=== PATIENT | female | born 1995 | race Two or more races ===

== ENCOUNTER → 2017-02-20 10:33 | Outpatient (CLI) | payer MEDICAID ==
[2011-08-10 00:13] VITALS: BMI 26.2
== END | disposition home or self-care (01) ==
LOC: D.US 10:33
DX: R10.2 Pelvic and perineal pain (principal)

== ENCOUNTER 2017-04-07 11:32 | Emergency (ER) | payer MEDICAID ==
[2011-08-10 00:13] VITALS: BMI 26.2
== END 2017-04-07 13:02 | disposition home or self-care (01) ==
LOC: D.ER 11:32
DX: R51 Headache (principal); K21.9 Gastro-esophageal reflux disease without esophagitis

== ENCOUNTER 2017-05-19 09:38 | Emergency (ER) | payer MEDICAID ==
[2011-08-10 00:13] VITALS: BMI 26.2
== END 2017-05-19 10:38 | disposition home or self-care (01) ==
LOC: D.ER 09:38
DX: J02.9 Acute pharyngitis, unspecified (principal); J06.9 Acute upper respiratory infection, unspecified; K21.9 Gastro-esophageal reflux disease without esophagitis

== ENCOUNTER → 2018-08-29 09:38 | Outpatient (CLI) | payer MEDICAID ==
[2011-08-10 00:13] VITALS: BMI 26.2
== END | disposition home or self-care (01) ==
LOC: D.US 09:38
DX: N93.9 Abnormal uterine and vaginal bleeding, unspecified (principal)

== ENCOUNTER 2018-09-08 01:52 | Emergency (ER) | payer MEDICAID ==
[~2018-09-08] VITALS: Ht 160 cm; Wt 69.5 kg
[2018-09-08 01:56] VITALS: Ht 160 cm; Wt 69.5 kg
[2018-09-08 02:22] LABS: BASOPHILS 0.2 % (0-2); EOSINOPHILS 2.4 % (0-7); HEMATOCRIT 37.3 % (36.0-48.0); HEMOGLOBIN 12.2 g/dL (12-16); IMMATURE GRANULOCYTES 0.1 % (0-5); LYMPHOCYTES 34.3 % (15-50); MCH 26.9 pg (26.0-34.0); MCHC 32.7 g/dL (31.0-37.0); MCV 82.3 fL (80.0-100.0); MEAN PLATELET VOLUME 9.7 fL (7.4-10.4); MONOCYTES 6.6 % (2-11); NEUTROPHILS 56.4 % (40-80); RBC 4.53 10x6/uL (4.00-5.40); RDW 14.4 % (11.5-14.5); WBC 9.6 10x3/uL (4.8-10.8)
[2018-09-08 02:23] LABS: APPEARANCE HAZY (CLEAR); BILIRUBIN NEGATIVE (NEGATIVE); COLOR YELLOW (YELLOW); GLUCOSE NEGATIVE (NEGATIVE); KETONE NEGATIVE (NEGATIVE); NITRITE NEGATIVE (NEGATIVE); PROTEIN NEGATIVE (NEGATIVE); UROBILINOGEN NORMAL (NORMAL)
[2018-09-08 02:24] LABS: HCG URINE NEGATIVE (NEGATIVE)
[2018-09-08 02:25] LABS: PLATELET COUNT 290 10x3/uL (130-400)
[2018-09-08 02:29] LABS: BACTERIA MODERATE /hpf (NONE SEEN); EPITHELIAL CELLS 0-5 /hpf (0-5); RED CELLS - URINE OCC /hpf (0-5); WHITE CELLS - URINE 0-5 /hpf (0-5)
[2018-09-08 02:36] LABS: ALBUMIN 3.6 g/dL (3.4-5.0); ALKALINE PHOSPHATASE 78 U/L (46-116); ALT (SGPT) 23 U/L (10-68); BILIRUBIN - TOTAL 0.25 mg/dL (0.2-1.3); CALC OSMOLALITY 278 mosm/kg (275-300); CALCIUM 8.3 mg/dL (8.5-10.1); CHLORIDE - SERUM 105 mmol/L (98-107); CREATININE - SERUM 0.6 mg/dL (0.6-1.3); GLUCOSE 111 mg/dL (74-106); LIPASE 223 U/L (73-393); POTASSIUM - SERUM 3.8 mmol/L (3.5-5.1); PROTEIN - SERUM 7.4 g/dL (6.4-8.2); SODIUM 140 mmol/L (136-145); UREA NITROGEN 11 mg/dL (7-18); eGFR NON AFRICAN AMERICAN > 90 mL/min (90-120)
[2018-09-08 03:12] VITALS: BP 130/78
== END 2018-09-08 03:13 | disposition home or self-care (01) ==
LOC: D.ER 01:52
PROVIDERS: Family Medicine
DX: R19.7 Diarrhea, unspecified (principal); R10.2 Pelvic and perineal pain

== ENCOUNTER 2018-11-04 17:52 | Emergency (ER) | payer MEDICAID ==
[2018-09-08 01:56] VITALS: Ht 160 cm
[2018-11-04 18:56] LABS: BASOPHILS 0.2 % (0-2); EOSINOPHILS 1.7 % (0-7); HEMATOCRIT 37.3 % (36.0-48.0); HEMOGLOBIN 12.4 g/dL (12-16); IMMATURE GRANULOCYTES 0.2 % (0-5); LYMPHOCYTES 31.1 % (15-50); MCH 27.4 pg (26.0-34.0); MCHC 33.2 g/dL (31.0-37.0); MCV 82.3 fL (80.0-100.0); NEUTROPHILS 60.8 % (40-80); PLATELET COUNT 287 10x3/uL (130-400); RBC 4.53 10x6/uL (4.00-5.40); RDW 14.1 % (11.5-14.5); WBC 11.4 10x3/uL (4.8-10.8)
[2018-11-04 19:20] LABS: ALBUMIN 3.4 g/dL (3.4-5.0); ALKALINE PHOSPHATASE 65 U/L (46-116); ALT (SGPT) 19 U/L (10-68); BILIRUBIN - TOTAL 0.19 mg/dL (0.2-1.3); CALC OSMOLALITY 267 mosm/kg (275-300); CALCIUM 8.3 mg/dL (8.5-10.1); CARBON DIOXIDE 23.1 mmol/L (21.0-32.0); CHLORIDE - SERUM 103 mmol/L (98-107); CREATININE - SERUM 0.6 mg/dL (0.6-1.3); GLUCOSE 84 mg/dL (74-106); POTASSIUM - SERUM 3.5 mmol/L (3.5-5.1); PROTEIN - SERUM 7.3 g/dL (6.4-8.2); SODIUM 135 mmol/L (136-145); UREA NITROGEN 10 mg/dL (7-18); eGFR NON AFRICAN AMERICAN > 90 mL/min (90-120)
[2018-11-04 19:43] LABS: HCG - QUANTITATIVE (MATERNAL) 52334 mIU/mL
[2018-11-04 22:23] LABS: APPEARANCE CLEAR (CLEAR); COLOR YELLOW (YELLOW)
[2018-11-04 22:24] LABS: SPECIFIC GRAVITY 1.015 (1.005-1.020)
[2018-11-04 22:28] LABS: BILIRUBIN NEGATIVE (NEGATIVE); GLUCOSE NEGATIVE (NEGATIVE); KETONE NEGATIVE (NEGATIVE); NITRITE NEGATIVE (NEGATIVE); PROTEIN NEGATIVE (NEGATIVE); UROBILINOGEN NORMAL (NORMAL)
[2018-11-04 22:36] LABS: RED CELLS - URINE OCC /hpf (0-5)
[2018-11-04 22:39] LABS: EPITHELIAL CELLS 0-5 /hpf (0-5)
[2018-11-04 22:40] LABS: BACTERIA MANY /hpf (NONE SEEN)
[2018-11-04] MEDS ORDERED: ZOFRAN ODT4 MG/UDTAB PO (22:51)
[2018-11-04 23:47] VITALS: BP 128/70
== END 2018-11-04 23:47 | disposition home or self-care (01) ==
LOC: D.ER 17:52
PROVIDERS: Family Medicine
DX: O34.80 Maternal care for other abnormalities of pelvic organs, unspecified trimester (principal); N83.209 Unspecified ovarian cyst, unspecified side; Z3A.08 8 weeks gestation of pregnancy

== ENCOUNTER → 2018-11-27 13:10 | Outpatient (CLI) | payer MEDICAID ==
[~2018-11-27 13:10] MED LIST: ZOFRAN ODT4 MG/UDTAB PO
== END | disposition home or self-care (01) ==
LOC: D.RAD 13:00
PROVIDERS: ATTEND Obstetrics & Gynecology
DX: R76.11 Nonspecific reaction to tuberculin skin test without active tuberculosis (principal)

== ENCOUNTER 2019-01-14 11:13 | Emergency (ER) | payer MEDICAID ==
[~2019-01-14] VITALS: Ht 160 cm; Wt 68.2 kg
[2019-01-14 11:16] VITALS: Ht 160 cm; Wt 68.2 kg
[2019-01-14] MEDS ORDERED: PRENAVITE1 TAB PO (11:20)
[2019-01-14 11:50] LABS: BASOPHILS 0.1 % (0-2); EOSINOPHILS 0.7 % (0-7); HEMATOCRIT 35.4 % (36.0-48.0); HEMOGLOBIN 12.4 g/dL (12-16); IMMATURE GRANULOCYTES 0.1 % (0-5); MCH 28.8 pg (26.0-34.0); MCV 82.3 fL (80.0-100.0); MONOCYTES 4.4 % (2-11); NEUTROPHILS 70.7 % (40-80); PLATELET COUNT 250 10x3/uL (130-400); WBC 9.3 10x3/uL (4.8-10.8)
[2019-01-14 12:08] LABS: ALBUMIN 3.3 g/dL (3.4-5.0); ALKALINE PHOSPHATASE 54 U/L (46-116); ALT (SGPT) 17 U/L (10-68); BILIRUBIN - TOTAL 0.34 mg/dL (0.2-1.3); CALC OSMOLALITY 268 mosm/kg (275-300); CALCIUM 8.8 mg/dL (8.5-10.1); CARBON DIOXIDE 24.9 mmol/L (21.0-32.0); CHLORIDE - SERUM 103 mmol/L (98-107); CREATININE - SERUM 0.5 mg/dL (0.6-1.3); GLUCOSE 83 mg/dL (74-106); POTASSIUM - SERUM 3.6 mmol/L (3.5-5.1); PROTEIN - SERUM 7.2 g/dL (6.4-8.2); SODIUM 136 mmol/L (136-145); UREA NITROGEN 8 mg/dL (7-18); eGFR NON AFRICAN AMERICAN > 90 mL/min (90-120)
[2019-01-14 12:19] LABS: APPEARANCE CLEAR (CLEAR); BILIRUBIN NEGATIVE (NEGATIVE); COLOR YELLOW (YELLOW); GLUCOSE NEGATIVE (NEGATIVE); KETONE SMALL mg/dL (NEGATIVE); NITRITE NEGATIVE (NEGATIVE); PROTEIN NEGATIVE (NEGATIVE); SPECIFIC GRAVITY 1.015 (1.005-1.020); UROBILINOGEN NORMAL (NORMAL)
[2019-01-14 12:21] LABS: BACTERIA MANY /hpf (NONE SEEN); EPITHELIAL CELLS 0-5 /hpf (0-5); MUCUS <1+ /lpf (NONE SEEN); RED CELLS - URINE RARE /hpf (0-5); WHITE CELLS - URINE 0-5 /hpf (0-5)
[2019-01-14 14:26] VITALS: BP 104/55
== END 2019-01-14 14:27 | disposition home or self-care (01) ==
LOC: D.ER 11:13
PROVIDERS: Family Medicine
DX: O26.892 Other specified pregnancy related conditions, second trimester (principal); Z3A.18 18 weeks gestation of pregnancy; E86.9 Volume depletion, unspecified

== ENCOUNTER 2019-03-01 19:30 | Emergency (ER) | payer MEDICAID ==
[2019-01-14 11:16] VITALS: Ht 160 cm; Wt 70.5 kg
[~2019-03-01] VITALS: Ht 160 cm; Wt 70.5 kg
[~2019-03-01 19:30] MED LIST changes: +PRENAVITE1 TAB PO
[2019-03-01] MEDS ORDERED: OMNICEF300 MG PO (20:02)
[2019-03-01 20:12] VITALS: BP 102/63
== END 2019-03-01 20:12 | disposition home or self-care (01) ==
LOC: D.ER 19:30
DX: J06.9 Acute upper respiratory infection, unspecified (principal); H66.92 Otitis media, unspecified, left ear

== ENCOUNTER → 2019-04-14 15:30 | Outpatient (CLI) | payer MEDICAID ==
[2019-03-01 19:43] VITALS: BMI 27.5
[~2019-04-14 15:30] MED LIST changes: +OMNICEF300 MG PO
[2019-04-14 17:02] LABS: APPEARANCE CLEAR (CLEAR); BILIRUBIN NEGATIVE (NEGATIVE); COLOR YELLOW (YELLOW); GLUCOSE NEGATIVE (NEGATIVE); KETONE NEGATIVE (NEGATIVE); NITRITE NEGATIVE (NEGATIVE); PROTEIN NEGATIVE (NEGATIVE); UROBILINOGEN NORMAL (NORMAL)
[2019-04-14 17:04] LABS: BACTERIA FEW /hpf (NONE SEEN); WHITE CELLS - URINE OCC /hpf (0-5)
== END | disposition home or self-care (01) ==
LOC: D.LDO 15:30
PROVIDERS: Obstetrics & Gynecology; ATTEND Student in an Organized Health Care Education/Training Program
DX: O26.893 Other specified pregnancy related conditions, third trimester (principal); Z3A.31 31 weeks gestation of pregnancy

== ENCOUNTER → 2019-05-09 09:59 | Outpatient (CLI) | payer MEDICAID ==
[2019-03-01 19:43] VITALS: BMI 27.5
[2019-05-09 10:24] LABS: APPEARANCE HAZY (CLEAR); BILIRUBIN NEGATIVE (NEGATIVE); COLOR YELLOW (YELLOW); GLUCOSE NEGATIVE (NEGATIVE); KETONE NEGATIVE (NEGATIVE); NITRITE NEGATIVE (NEGATIVE); PROTEIN NEGATIVE (NEGATIVE)
[2019-05-09 10:25] LABS: BACTERIA MANY /hpf (NONE SEEN); EPITHELIAL CELLS 0-5 /hpf (0-5); MUCUS >1+ /lpf (NONE SEEN); RED CELLS - URINE RARE /hpf (0-5); WHITE CELLS - URINE 0-5 /hpf (0-5)
== END | disposition home or self-care (01) ==
LOC: D.LDO 09:59
PROVIDERS: ATTEND Student in an Organized Health Care Education/Training Program
DX: O26.899 Other specified pregnancy related conditions, unspecified trimester (principal); Z3A.00 Weeks of gestation of pregnancy not specified; M54.9 Dorsalgia, unspecified

== ENCOUNTER 2019-06-11 15:08 | Inpatient (IN) | payer MEDICAID ==
[~2019-06-11] VITALS: Ht 160 cm; Wt 69.4 kg
[2019-06-11 15:21] VITALS: BP 105/68; Ht 160 cm; Wt 69.4 kg
[2019-06-11 15:49] LABS: HEMATOCRIT 33.3 % (36.0-48.0); MCH 28.3 pg (26.0-34.0); MCV 85.6 fL (80.0-100.0); MEAN PLATELET VOLUME 10.5 fL (7.4-10.4); RBC 3.89 10x6/uL (4.00-5.40); RDW 13.2 % (11.5-14.5); WBC 9.7 10x3/uL (4.8-10.8)
[2019-06-12 07:14] LABS: RAPID PLASMA REAGIN Non Reactive (Non Reactive)
--- NOTE | 2019-06-12 19:15 | NUR ---
PM ROUNDS MADE, PT HOLDING AND VISITING WITH FAMILY AND FRIENDS, INFORMED PT THAT I WILL COME BACK SHORTLY TO DO ASSESSMENT, PT VERBALIZES UNDERSTANDING, DENIES NEEDS OR PAIN AT THIS TIME
--- NOTE | 2019-06-12 20:08 | NUR ---
PT BOTTLE FEEDING INFANT, ADM TYLENOL PER MD ORDERS, SEE EMAR, PT DENIES NEEDS AT THIS TIME, FAMILY AND FRIENDS IN ROOM
[2019-06-12 21:33] VITALS: BP 88/55
--- NOTE | 2019-06-12 21:33 | NUR ---
ASSESSMENT PER FLOW SHEET, VS OBTAINED, SALINE LOCK IN RIGHT WRIST INTACT WITH NO REDNESS OR EDEMA, FF, ML, U/2, PT REPORTS LIGHT BLEEDING WITH NO CLOTS, REPORTS FLATUS, NO BM AND VOIDING WITH NO DIFFICULTY, PT INST ON AND VERBALIZES UNDERSTANDING OF [facility], PT DENIES NEEDS OR PAIN AT THIS TIME, FOB HOLDING
--- NOTE | 2019-06-12 22:35 | NUR ---
PT HOLDING INFANT, DENIES PAIN, REQUESTED AND PROVIDED BOTTLE FOR INFANT, BEDDING PROVIDED TO FOB, PT DENIES FURTHER NEEDS
--- NOTE | 2019-06-13 00:20 | NUR ---
UPON ENTERING ROOM, PT IS RESTING WITH EYES CLOSED, ASLEEP IN BED WITH PT, PT AROUSES TO SOFT VERBAL STIMULATION, PT INFORMED THAT SHE IS NOT TO FALL ASLEEP WITH IN BED WITH HER, PT VERBALIZES UNDERSTANDING, INFANT TO OPEN CRIB CART AT BEDSIDE, PT DENIES NEEDS OR PAIN AT THIS TIME, FOB ASLEEP AT BEDSIDE
--- NOTE | 2019-06-13 02:50 | NUR ---
PT AWAKE, JUST FINISHED CHANGING INFANT'S DIAPER, ADM TYLENOL PER MD ORDERS, SEE EMAR, WITH FRESH H20, FOB ASLEEP AT BEDSIDE
--- NOTE | 2019-06-13 03:36 | NUR ---
PT RESTING WITH EYES CLOSED, RESP QUIET, NO DISTRESS NOTED, LEFT UNDISTURBED AT THIS TIME, IN OPEN CRIB CART AND FOB ASLEEP AT BEDSIDE
--- NOTE | 2019-06-13 05:19 | NUR ---
PT RESTING WITH EYES CLOSED, RESP QUIET, NO DISTRESS NOTED, LEFT UNDISTURBED AT THIST GENE, FOB ASLEEP AT BEDSIDE, IN NSY AT THIS TIME
[2019-06-13 05:58] LABS: BASOPHILS 0.1 % (0-2); EOSINOPHILS 1.1 % (0-7); HEMATOCRIT 30.6 % (36.0-48.0); HEMOGLOBIN 9.9 g/dL (12-16); IMMATURE GRANULOCYTES 0.3 % (0-5); LYMPHOCYTES 20.9 % (15-50); MCH 27.7 pg (26.0-34.0); MCHC 32.4 g/dL (31.0-37.0); MCV 85.7 fL (80.0-100.0); MEAN PLATELET VOLUME 10.5 fL (7.4-10.4); MONOCYTES 6.9 % (2-11); NEUTROPHILS 70.7 % (40-80); PLATELET COUNT 216 10x3/uL (130-400); RBC 3.57 10x6/uL (4.00-5.40); RDW 13.1 % (11.5-14.5)
[2019-06-13 06:29] LABS: WBC 12.7 10x3/uL (4.8-10.8)
--- NOTE | 2019-06-13 07:00 | NUR ---
SHIFT REPORT TO DAY SHIFT
--- NOTE | 2019-06-13 07:30 | NUR ---
PT RESTING IN BED ASLEEP WITH BABY AT BEDSIDE. WILL CONT TO FOLLOW POC
[2019-06-13 08:17] VITALS: BP 103/67
--- NOTE | 2019-06-13 08:37 | NUR ---
PT RESTING IN BED, BABY AT BEDSIDE. APAP GIVEN ORDERED WITH FRESH WATER. PT SHOWED NURSE A LARGE BLOOD CLOT, APPROXIMATELY THE SIZE OF A SMALL LITTLE RIVER. PT REPORTS THIS IS THE FIRST BLOOD CLOT SHE HAS HAD SINCE DELIVERY. PT LAID BACK IN BED AND FUNDUS WAS FIRM. ADVISED PT TO NOTIFY NURSE IF SHE CONTINUES TO HAVE MORE BLOOD CLOTS OR NOTICES THAT HER BLEEDING HAS INCREASED. PT VERBALIZES UNDERSTANDING. DENIES ANY FURTHER NEEDS AT THIS TIME. WILL CONT TO FOLLOW POC
--- NOTE | 2019-06-13 09:36 | NUR ---
PT SHOWERED AND NOW RESTING IN BED. BABY AT NURSERY. REPORTS NO OTHER CLOTS AND SMALL BLEEDING AT THIS TIME. DENIES ANY FURTHER NEEDS. WILL CONT TO FOLLOW POC
--- NOTE | 2019-06-13 10:30 | NUR ---
PT RESTING IN BED, DENIES ANY NEEDS AT THIS TIME, REPORTS NO FURTHER CLOTS AND SMALL AMOUNT OF BLOOD. CALL LIGHT WITHIN REACH. WILL CONT TO FOLLOW POC
--- NOTE | 2019-06-13 11:30 | NUR ---
PT RESTING IN BED, FAMILY AT BEDSIDE. PT REPORTS MILD BLEEDING. DENIES ANY FURTHER NEEDS AT THIS TIME. WILL CONT TO FOLLOW POC
--- NOTE | 2019-06-13 11:30 | NUR ---
PT RESTING IN BED HOLDING BABY. CALL LIGHT WITHIN REACH. DENIES ANY NEEDS AT THIS TIME. WILL CONT TO FOLLOW POC
[2019-06-13 11:54] VITALS: BP 104/58
--- NOTE | 2019-06-13 12:40 | NUR ---
TDAP VACCINATION GIVEN TO LEFT ARM. PT TOLERATED WELL. FAMILY AT BEDSIDE, DENIES ANY FURTHER NEEDS AT THIS TIME, WILL CONT TO FOLLOW POC
--- NOTE | 2019-06-13 13:30 | NUR ---
PT RESTING IN BED, FAMILY AT BEDSIDE. PT REPORTS ONLY MILD BLEEDING. DENIES ANY FURTHER NEEDS AT THIS TIME, WILL CONT TO FOLLOW POC
--- NOTE | 2019-06-13 14:30 | NUR ---
PT RESTING IN BED HOLDING BABY. FAMILY AT BEDSIDE. DENIES ANY FURTHER NEEDS AT THIS TIME, WILL CONT TO FOLLOW POC
--- NOTE | 2019-06-13 15:47 | NUR ---
PT RESTING IN BED, FAMILY AT BEDSIDE, DENIES ANY NEEDS AT THIS TIME, WILL CONT TO FOLLOW POC
--- NOTE | 2019-06-13 17:30 | NUR ---
DISCHARGE INSTRUCTIONS REVIEWED WITH PT AND ALL QUESTIONS ANSWERED. PT WAITING ON HER MOM TO COME GET HER.
== END 2019-06-13 17:30 | disposition home or self-care (01) | DRG 807 ==
LOC: D.LD 15:08 → D.WS 06-12 19:00
PROVIDERS: ADMIT Obstetrics & Gynecology; ATTEND Obstetrics & Gynecology
PROC: 3E033VJ Introduction of Other Hormone into Peripheral Vein, Percutaneous Approach (ICD-10-PCS; 2019-06-11)
PROC: 10E0XZZ Delivery of Products of Conception, External Approach (ICD-10-PCS; principal; 2019-06-12)
PROC: 0KQM0ZZ Repair Perineum Muscle, Open Approach (ICD-10-PCS; 2019-06-12)
DX: O70.1 Second degree perineal laceration during delivery (principal); Z37.0 Single live birth; Z3A.39 39 weeks gestation of pregnancy

== ENCOUNTER → 2019-10-29 14:50 | Outpatient (CLI) | payer MEDICAID ==
[2019-06-11 15:21] VITALS: BMI 27.1
== END | disposition home or self-care (01) ==
LOC: D.US 14:50
PROVIDERS: ATTEND Family Medicine
DX: R10.2 Pelvic and perineal pain (principal)

== ENCOUNTER 2019-11-07 01:59 | Emergency (ER) | payer OTHER ==
[~2019-11-07] VITALS: Ht 160 cm; Wt 70.5 kg
[2019-11-07 02:11] VITALS: Ht 160 cm; Wt 70.5 kg
[2019-11-07] MEDS ORDERED: ZOFRAN ODT4 MG/UDTAB PO (02:31)
[2019-11-07] MEDS ORDERED: ATIVAN1 MG PO (02:31)
[2019-11-07 02:57] VITALS: BP 120/75
== END 2019-11-07 02:57 | disposition home or self-care (01) ==
LOC: D.ER 01:59
DX: R53.1 Weakness (principal); R11.0 Nausea; I10 Essential (primary) hypertension; E11.9 Type 2 diabetes mellitus without complications

== ENCOUNTER 2020-01-18 07:17 | Emergency (ER) | payer OTHER ==
[~2020-01-18] VITALS: Ht 160 cm; Wt 72.7 kg
[~2020-01-18 07:17] MED LIST changes: +ATIVAN1 MG PO
[2020-01-18 07:20] VITALS: Ht 160 cm; Wt 72.7 kg
[2020-01-18 08:25] VITALS: BP 120/72
[2020-01-21 17:08] LABS: AEROBE ID Preliminary report (())
== END 2020-01-18 08:25 | disposition home or self-care (01) ==
LOC: D.ER 07:17
PROVIDERS: Family Medicine
DX: J02.9 Acute pharyngitis, unspecified (principal)

== ENCOUNTER → 2020-01-22 11:31 | Outpatient (CLI) | payer OTHER ==
[2020-01-18 07:20] VITALS: BMI 28.4
== END | disposition home or self-care (01) ==
LOC: D.US 11:30
PROVIDERS: ATTEND Family Medicine
DX: E04.9 Nontoxic goiter, unspecified (principal)

== ENCOUNTER 2020-12-28 18:20 | Emergency (ER) | payer OTHER ==
[~2020-12-28] VITALS: Ht 160 cm; Wt 77.3 kg
[~2020-12-28 18:20] MED LIST changes: +FLAGYL500 MG PO; +KEFLEX500 MG PO; +MACROBID100 MG PO
[2020-12-28 18:25] VITALS: Ht 160 cm; Wt 77.3 kg
[2020-12-28] MEDS ORDERED: VIBRAMYCIN 100100 MG PO (19:07)
[2020-12-28 19:42] VITALS: BP 120/70
== END 2020-12-28 19:43 | disposition home or self-care (01) ==
LOC: D.ER 18:20
DX: J32.9 Chronic sinusitis, unspecified (principal); N76.0 Acute vaginitis; R51.9 Headache, unspecified

== ENCOUNTER 2020-12-30 13:22 | Emergency (ER) | payer OTHER ==
[~2020-12-30] VITALS: Ht 160 cm; Wt 77.3 kg
[~2020-12-30 13:22] MED LIST changes: +VIBRAMYCIN 100100 MG PO
[2020-12-30 13:38] VITALS: BP 113/73; Ht 160 cm; Wt 77.3 kg
[2020-12-30] MEDS ORDERED: MEDROL DOSE PACK4 MG PO (17:51)
== END 2020-12-30 18:13 | disposition home or self-care (01) ==
LOC: D.ER 13:22
DX: R51.9 Headache, unspecified (principal)